=== PATIENT | female | born 1965 | race Caucasian/White ===

== ENCOUNTER 2016-09-18 19:28 | Emergency (ER) | payer OTHER ==
[~2016-09-18] VITALS: Ht 160 cm; Wt 89.0 kg
[~2016-09-18 19:28] MED LIST: LEVO100T87 PO; METF1000 PO; QUET300T13 PO
[2016-09-18 20:16] VITALS: Ht 160 cm; Wt 89.0 kg
[2016-09-18 21:58] LABS: ADD UMIC YES; URINE BILIRUBIN (Dip) NEGATIVE (NEGATIVE); URINE BLOOD (Dip) TRACE (NEGATIVE); URINE COLOR LT. YELLOW (YELLOW); URINE GLUCOSE (Dip) NEGATIVE (NEGATIVE); URINE KETONES (Dip) NEGATIVE (NEGATIVE); URINE LEUKOCYTE ESTERASE (Dip) 3+ (NEGATIVE); URINE NITRITE (Dip) NEGATIVE (NEGATIVE); URINE TOTAL PROTEIN (Dip) NEGATIVE (NEGATIVE); URINE UROBILINOGEN (Dip) 0.2 E.U./dL (0.1-1.0)
[2016-09-18 22:06] LABS: BASOPHIL # 0.1 10^3/ul (0.0-0.1); BASOPHILS % 0.5 % (0.0-2.0); EOSINOPHILS # 0.4 10^3/ul (0.0-0.5); EOSINOPHILS % 3.8 % (0.0-7.0); HEMATOCRIT 34.3 % (37.0-47.0); HEMOGLOBIN 11.4 g/dl (12.0-16.0); LYMPHOCYTES # 3.4 10^3/ul (0.8-2.9); LYMPHOCYTES % 32.9 % (15.0-51.0); MEAN CORPUSCULAR HEMOGLOBIN 28.5 pg (29.0-33.0); MEAN CORPUSCULAR HGB CONC 33.4 g/dl (32.0-37.0); MEAN CORPUSCULAR VOLUME 85.3 fl (82.0-101.0); MEAN PLATELET VOLUME 8.7 fl (7.4-10.4); MONOCYTE # 0.7 10^3/ul (0.3-0.9); MONOCYTES % 6.8 % (0.0-11.0); NEUTROPHIL # 5.8 10^3/ul (1.6-7.5); PLATELET COUNT 256 10^3/UL (140-440); RED BLOOD COUNT 4.03 10^6/ul (4.20-5.40); RED CELL DISTRIBUTION WIDTH 15.7 % (11.5-14.5); UNCORRECTED WBC 10.4 10^3/ul (4.8-10.8); WHITE BLOOD COUNT 10.4 10^3/ul (4.8-10.8)
[2016-09-18 22:08] LABS: BACTERIA,URINE MODERATE; SQUAMOUS EPITHELIAL CELL,UR MODERATE; TRICHOMONAS,URINE MODERATE; URINE RBCS 0-2 /HPF (0)
[2016-09-18 22:09] LABS: CONDITION 1; LH ANALYZER COMMENTS 1
[2016-09-18 22:13] LABS: ALBUMIN 4.3 g/dl (3.3-4.9)
[2016-09-18 22:14] LABS: CHLORIDE 100 mmol/L (97-110); POTASSIUM 3.6 mmol/L (3.5-5.1); SODIUM 142 mmol/L (135-144)
[2016-09-18 22:16] LABS: ALANINE AMINOTRANSFERASE 26 IU/L (13-69); ALBUMIN/GLOBULIN RATIO 1.53; ALKALINE PHOSPHATASE 49 IU/L (42-121); ANION GAP 24 (8-16); ASPARTATE AMINO TRANSFERASE 28 IU/L (15-46); BLOOD UREA NITROGEN 16 mg/dl (7-20); CARBON DIOXIDE 22 mmol/L (21-31); CREATININE 0.65 mg/dl (0.44-1.00); GLUCOSE 115 mg/dl (70-220); TOTAL PROTEIN 7.1 g/dl (6.1-8.1)
[2016-09-18 22:17] LABS: CALCIUM 9.5 mg/dl (8.4-10.2)
[2016-09-18 22:18] LABS: ACETAMINOPHEN < 10.0 ug/ml (10.0-30.0); SALICYLATE < 1.0 mg/dl (5.0-30.0)
[2016-09-18] MEDS ORDERED: TRIMETHOPRIM/SULFAMETHOX (DS) TAB PO ONE (22:30)
[2016-09-18 22:35] LABS: BARBITURATES NEGATIVE (NEGATIVE); BENZODIAZEPINES NEGATIVE (NEGATIVE); CANNABINOIDS NEGATIVE (NEGATIVE); COCAINE NEGATIVE (NEGATIVE); OPIATES NEGATIVE (NEGATIVE)
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
--- NOTE | 2016-09-18 22:50 | ERA ---
ER Documentation Chief Complaint Date/Time DATE: 09/18/16 TIME: 22:48 Chief Complaint suicidal ideation"hung herself" HPI This is a 51-year-old female presents to the emergency room for evaluation of suicidal ideation. The patient states that she is feeling depressed, and "I want to hang myself". The patient does state that she is was been surgical but has not had her medications because she lost them. She denies any homicidal ideation. ROS All systems reviewed and are negative except as per history of present illness. Medications Home Meds Reported Medications Quetiapine Fumarate* (Seroquel*) 300 Mg Tablet, 300 MG PO BID, #15 10/12/15 Metformin Hcl* (Metformin Hcl*) 1,000 Mg Tablet, 1000 MG PO BID, TAB 01/04/15 Levothyroxine Sodium* (Levothyroxine Sodium*) 100 Mcg Tablet, 100 MCG PO AC BREAKFAST, TAB 01/04/15 Allergies Allergies: Coded Allergies: No Known Drug Allergies (Verified Allergy, Unknown, 09/18/16) PMhx/Soc History of Surgery: No Anesthesia Reaction: No Hx Neurological Disorder: No Hx Respiratory Disorders: Yes Hx Cardiac Disorders: No Hx Psychiatric Problems: Yes (bipolar) Hx Miscellaneous Medical Probl: Yes (dm and hypothyroid) Hx Alcohol Use: Yes (per EMS) Hx Substance Use: No Hx Tobacco Use: Yes Smoking Status: Smoker,current status unk Physical Exam Vitals Vital Signs Date Time Temp Pulse Resp B/P Pulse Ox O2 Delivery O2 Flow Rate FiO2 09/18/16 20:16 97.7 95 290 125/60 100 Physical Exam INITIAL VITAL SIGNS: Reviewed by me GENERAL: The patient is well developed and appropriate for usual state of health in no apparent distress HEENT: Pupils equal, round, and reactive to light. EOMI. There is no scleral icterus. NECK: C-spine is soft and supple, there is no meningismus. There is no cervical lymphadenopathy. LUNGS: Clear to auscultation bilaterally. There are no rales, wheezes or rhonchi. HEART: Regular rate and rhythm, no murmurs, clicks, rubs or gallops. ABDOMEN: Soft, non-tender, non-distended. There are bowel sounds in all four quadrants. No rebound or guarding. EXTREMITIES: There is no peripheral cyanosis or edema. No focal swelling or erythema. NEUROLOGICAL: The patient moves all four extremities with 5/5 strength. Cranial nerves II - XII are intact. Normal gait. Alert and oriented SKIN: There is no apparent rash or petechiae. HEME/LYMPHATIC: There is no evidence of excessive bruising or lymphedema. PSYCHIATRIC: The patient does have a flat affect Result Diagram: 09/18/16214209/18/162142 Results 24 hrs Laboratory Tests Test 09/18/16 21:43 Acetaminophen Level < 10.0ug/ml Alanine Aminotransferase (ALT/SGPT) 26IU/L Albumin 4.3g/dl Albumin/Globulin Ratio 1.53 Alkaline Phosphatase 49IU/L Anion Gap 24 Aspartate Amino Transf (AST/SGOT) 28IU/L Basophils # 0.110^3/ul Basophils % 0.5% Blood Morphology Comment Blood Urea Nitrogen 16mg/dl Calcium Level 9.5mg/dl Carbon Dioxide Level 22mmol/L Chloride Level 100mmol/L Creatinine 0.65mg/dl Direct Bilirubin 0.00mg/dl Eosinophils # 0.410^3/ul Eosinophils % 3.8% Ethyl Alcohol Level 19.0mg/dl Globulin 2.80g/dl Glucose Level 115mg/dl Hematocrit 34.3% Hemoglobin 11.4g/dl Indirect Bilirubin 0.0mg/dl Lymphocytes # 3.410^3/ul Lymphocytes % 32.9% Mean Corpuscular Hemoglobin 28.5pg Mean Corpuscular Hemoglobin Concent 33.4g/dl Mean Corpuscular Volume 85.3fl Mean Platelet Volume 8.7fl Monocytes # 0.710^3/ul Monocytes % 6.8% Neutrophils # 5.810^3/ul Neutrophils % 56.0% Nucleated Red Blood Cells # 0.010^3/ul Nucleated Red Blood Cells % 0.0/100WBC Platelet Count 04222^3/UL Potassium Level 3.6mmol/L Red Blood Count 4.0310^6/ul Red Cell Distribution Width 15.7% Salicylates Level < 1.0mg/dl Sodium Level 142mmol/L Total Bilirubin 0.0mg/dl Total Protein 7.1g/dl Urine Amphetamines Screen NEGATIVE Urine Bacteria MODERATE Urine Barbiturates NEGATIVE Urine Benzodiazepines Screen NEGATIVE Urine Bilirubin NEGATIVE Urine Cannabinoids NEGATIVE Urine Clarity CLOUDY Urine Cocaine Screen NEGATIVE Urine Color LT. YELLOW Urine Glucose NEGATIVE% Urine Hemoglobin TRACE Urine Ketones NEGATIVE Urine Leukocyte Esterase 3+ Urine Microscopic RBC 0-2/HPF Urine Microscopic WBC >200/HPF Urine Nitrite NEGATIVE Urine Opiates Screen NEGATIVE Urine Specific [place] <=1.005 Urine Squamous Epithelial Cells MODERATE Urine Total Protein NEGATIVE Urine Trichomonas MODERATE Urine Urobilinogen 0.2 E.U./dL Urine pH 5.0 White Blood Count 10.410^3/ul Current Medications Medications (Trade) Dose Ordered Sig/Melissa Route PRN Reason Start Time Stop Time Status Last Admin Dose Admin Trimethoprim/ Sulfamethoxazole (Bactrim (Ds)) 1 tab ONCE ONCE PO 09/18/16 22:30 09/18/16 22:31 DC 09/18/16 22:26 Procedures/MDM This 51-year-old female presents to the ER for suicidal ideation. She does state that she wants to hang herself. The patient does have an extensive psychiatric history. Lab work was drawn including a urine which shows a urinary tract infection. The patient was given Bactrim. The patient was seen and evaluated by tele-psych and will be transferred when there is an available psychiatric bed. Patient presents with symptomatology consistent with the decompensation of previously diagnosed psychiatric disease. Based on history, physical exam and appropriate lab tests, I appreciate no evidence of significant life-threatening injury or illness that includes a psychiatric hospitalization. Patient is thus "medically clear" for psychiatric admission. In regards to the psychiatric complaints, this patient has clear evidence of high risk psychiatric symptoms with significant risk for decompensation, thus requiring admission to the hospital for stabilization. Departure Diagnosis: Primary Impression: Suicidal ideation Additional Impressions: Acute cystitis Normocytic anemia Condition: Fair BING POTTER DO Sep 18, 2016 22:50
[2016-09-18] MEDS ORDERED: QUETIAPINE 100 MG TAB PO ONE (23:00)
--- NOTE | 2016-09-19 09:38 | EN ---
Date/Time of Note Date/Time of Note DATE: 09/19/16 TIME: 09:34 ER Progress Note This patient had been seen and evaluated at 9 AM on September 19 by [facility] D[facility]. The patient did not meet criteria for a hold. The patient at this time was evaluated by myself as well as the leather goods sales representative from [employer] [facility]. The patient stated she was not suicidal homicidal. She stated she had been drinking roughly 6 beers a few hours prior to arrival and was trying to avoid her court date which was today. The bus transfer had been arranged for her to get back to her sober living facility and the patient was safely discharged at 9:36 AM by myself after I had reevaluated the patient and spoke with her in length. Again at this time the patient was not suicidal homicidal and had no auditory tactile or visual hallucinations. LESLIE JAVIER Sep 19, 2016 09:37
[2016-09-19 09:42] VITALS: BP 132/78; PULSE 72; RESP 18; TEMP 98.1
== END 2016-09-19 09:47 | disposition home or self-care (01) ==
LOC: E/R 19:28
DX: N30.00 Acute cystitis without hematuria (principal); D64.9 Anemia, unspecified; R45.851 Suicidal ideations; E11.9 Type 2 diabetes mellitus without complications; E03.9 Hypothyroidism, unspecified; F17.210 Nicotine dependence, cigarettes, uncomplicated; Z79.84 Long term (current) use of oral hypoglycemic drugs
CPT/HCPCS: 36415; 80053; 80306; 80307; 81001; 81003; 85025; 99283

== ENCOUNTER 2016-10-07 17:57 | Emergency (ER) | payer SELFPAY ==
[~2016-10-07] VITALS: Ht 160 cm; Wt 89.0 kg
[2016-10-07 18:39] VITALS: Ht 160 cm; Wt 89.0 kg
== END 2016-10-07 21:20 | disposition left against medical advice (07) ==
LOC: E/R 17:57
DX: Z53.21 Procedure and treatment not carried out due to patient leaving prior to being seen by health care provider (principal)

== ENCOUNTER 2016-12-12 20:53 | Emergency (ER) | payer OTHER, MEDICAID ==
[~2016-12-12] VITALS: Ht 160 cm; Wt 88.0 kg
[2016-12-12 20:59] VITALS: Ht 160 cm; Wt 88.0 kg
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
[2016-12-13 01:06] LABS: ADD SCAN DIFF NO
[2016-12-13 01:09] LABS: BASOPHILS % 0.4 % (0.0-2.0); EOSINOPHILS # 0.2 10^3/ul (0.0-0.5); EOSINOPHILS % 2.8 % (0.0-7.0); HEMATOCRIT 31.9 % (37.0-47.0); LYMPHOCYTES # 3.7 10^3/ul (0.8-2.9); MEAN CORPUSCULAR HEMOGLOBIN 26.7 pg (29.0-33.0); MEAN CORPUSCULAR HGB CONC 31.3 g/dl (32.0-37.0); MEAN CORPUSCULAR VOLUME 85.3 fl (82.0-101.0); MEAN PLATELET VOLUME 9.8 fl (7.4-10.4); MONOCYTE # 0.6 10^3/ul (0.3-0.9); MONOCYTES % 8.9 % (0.0-11.0); NEUTROPHIL # 2.4 10^3/ul (1.6-7.5); NEUTROPHILS % 34.5 % (39.0-77.0); PLATELET COUNT 301 10^3/UL (140-415); RED BLOOD COUNT 3.74 10^6/ul (4.20-5.40); RED CELL DISTRIBUTION WIDTH 16.6 % (11.5-14.5); WHITE BLOOD COUNT 7.1 10^3/ul (4.8-10.8)
[2016-12-13 01:11] LABS: ADD UMIC NO; URINE BILIRUBIN (Dip) NEGATIVE (NEGATIVE); URINE BLOOD (Dip) NEGATIVE (NEGATIVE); URINE COLOR LT. YELLOW (YELLOW); URINE GLUCOSE (Dip) NEGATIVE (NEGATIVE); URINE KETONES (Dip) NEGATIVE (NEGATIVE); URINE LEUKOCYTE ESTERASE (Dip) NEGATIVE (NEGATIVE); URINE NITRITE (Dip) NEGATIVE (NEGATIVE); URINE TOTAL PROTEIN (Dip) NEGATIVE (NEGATIVE); URINE UROBILINOGEN (Dip) 0.2 E.U./dL (0.1-1.0)
[2016-12-13 01:29] LABS: ALBUMIN 3.8 g/dl (3.3-4.9); CHLORIDE 98 mmol/L (97-110)
[2016-12-13 01:30] LABS: POTASSIUM 3.6 mmol/L (3.5-5.1); SODIUM 135 mmol/L (135-144)
[2016-12-13 01:32] LABS: ALANINE AMINOTRANSFERASE 32 IU/L (13-69); ALKALINE PHOSPHATASE 47 IU/L (42-121); ANION GAP 17 (8-16); ASPARTATE AMINO TRANSFERASE 33 IU/L (15-46); BILIRUBIN,INDIRECT 0.2 mg/dl (0-1.1); BILIRUBIN,TOTAL 0.2 mg/dl (0.2-1.3); BLOOD UREA NITROGEN 18 mg/dl (7-20); CARBON DIOXIDE 24 mmol/L (21-31); CREATININE 0.67 mg/dl (0.44-1.00); GLUCOSE 108 mg/dl (70-220); TOTAL PROTEIN 6.5 g/dl (6.1-8.1)
[2016-12-13 01:33] LABS: CALCIUM 8.7 mg/dl (8.4-10.2)
[2016-12-13 01:34] LABS: ACETAMINOPHEN < 10.0 ug/ml (10.0-30.0); SALICYLATE < 1.0 mg/dl (5.0-30.0)
[2016-12-13 01:38] LABS: BARBITURATES Negative (NEGATIVE)
[2016-12-13 01:41] LABS: BENZODIAZEPINES Negative (NEGATIVE); CANNABINOIDS Negative (NEGATIVE); COCAINE Negative (NEGATIVE); OPIATES Negative (NEGATIVE)
--- NOTE | 2016-12-13 02:55 | ERA ---
ER Documentation Chief Complaint Date/Time DATE: 12/13/16 TIME: 02:51 Chief Complaint states suicidal ideations HPI This 51-year-old female comes emergency room stating that she is suicidal and would like a place to stay. She does not have a specific plan in mind. He said that she has not any medications and denies drinking alcohol. Says that she has no physical pain. She did have a thumb injury 2 days ago for which she has splinted now. She currently has no pain of the thumb. ROS All systems reviewed and are negative except as per history of present illness. Medications Home Meds Reported Medications Quetiapine Fumarate* (Seroquel*) 300 Mg Tablet, 300 MG PO BID, #15 10/12/15 Metformin Hcl* (Metformin Hcl*) 1,000 Mg Tablet, 1000 MG PO BID, TAB 01/04/15 Levothyroxine Sodium* (Levothyroxine Sodium*) 100 Mcg Tablet, 100 MCG PO AC BREAKFAST, TAB 01/04/15 Allergies Allergies: Coded Allergies: No Known Drug Allergies (Verified Allergy, Unknown, 12/12/16) PMhx/Soc History of Surgery: No Anesthesia Reaction: No Hx Neurological Disorder: No Hx Respiratory Disorders: Yes Hx Cardiac Disorders: No Hx Psychiatric Problems: Yes (bipolar,anxiety,hx psych facility for SI) Hx Miscellaneous Medical Probl: Yes (diabetes, hypothyroid) Hx Alcohol Use: Yes (occasionally) Hx Substance Use: No Hx Tobacco Use: No (denies) Smoking Status: Never smoker Physical Exam Vitals Vital Signs Date Time Temp Pulse Resp B/P Pulse Ox O2 Delivery O2 Flow Rate FiO2 12/13/16 00:00 85 18 112/59 93 Room Air 12/12/16 20:59 99.3 88 20 124/60 96 Physical Exam Const: [] No distress Head: Atraumatic Eyes: Conjunctival erythema ENT: Normal External Ears, Nose and Mouth. Neck: Full range of motion..~ No meningismus. Resp: Clear to auscultation bilaterally Cardio: Regular rate and rhythm, no murmurs Abd: Soft, non tender, non distended. Normal bowel sounds Skin: No petechiae or rashes Ext: No cyanosis, or edema, valuable metal splint on thumb. Underneath thumb appears within normal limits with capillary refill less than 1 second. Neur: Awake and alert and oriented 3, cranial nerves II through XII intact, patient is euphoric and appears intoxicated does not have any slurred speech, no cerebellar deficits, Psych: Somewhat euphoric. Result Diagram: 12/13/16 00512/13/16 0050 Results 24 hrs Laboratory Tests Test 12/12/16 23:45 12/13/16 00:50 Urine Color LT. YELLOW Urine Clarity CLEAR Urine pH 5.0 Urine Specific [place] <=1.005 Urine Ketones NEGATIVE Urine Nitrite NEGATIVE Urine Bilirubin NEGATIVE Urine Urobilinogen 0.2 E.U./dL Urine Leukocyte Esterase NEGATIVE Urine Hemoglobin NEGATIVE Urine Glucose NEGATIVE% Urine Total Protein NEGATIVE Urine Opiates Screen Negative Urine Barbiturates Negative Urine Amphetamines Screen Negative Urine Benzodiazepines Screen Negative Urine Cocaine Screen Negative Urine Cannabinoids Negative White Blood Count 7.110^3/ul Red Blood Count 3.7410^6/ul Hemoglobin 10.0g/dl Hematocrit 31.9% Mean Corpuscular Volume 85.3fl Mean Corpuscular Hemoglobin 26.7pg Mean Corpuscular Hemoglobin Concent 31.3g/dl Red Cell Distribution Width 16.6% Platelet Count 74208^3/UL Mean Platelet Volume 9.8fl Neutrophils % 34.5% Lymphocytes % 53.0% Monocytes % 8.9% Eosinophils % 2.8% Basophils % 0.4% Nucleated Red Blood Cells % 0.0/100WBC Neutrophils # 2.410^3/ul Lymphocytes # 3.710^3/ul Monocytes # 0.610^3/ul Eosinophils # 0.210^3/ul Basophils # 0.010^3/ul Nucleated Red Blood Cells # 0.010^3/ul Sodium Level 135mmol/L Potassium Level 3.6mmol/L Chloride Level 98mmol/L Carbon Dioxide Level 24mmol/L Anion Gap 17 Blood Urea Nitrogen 18mg/dl Creatinine 0.67mg/dl Glucose Level 108mg/dl Calcium Level 8.7mg/dl Total Bilirubin 0.2mg/dl Direct Bilirubin 0.00mg/dl Indirect Bilirubin 0.2mg/dl Aspartate Amino Transf (AST/SGOT) 33IU/L Alanine Aminotransferase (ALT/SGPT) 32IU/L Alkaline Phosphatase 47IU/L Total Protein 6.5g/dl Albumin 3.8g/dl Globulin 2.70g/dl Albumin/Globulin Ratio 1.40 Salicylates Level < 1.0mg/dl Acetaminophen Level < 10.0ug/ml Ethyl Alcohol Level 104.0mg/dl Procedures/MDM Patient has been here several times for transfer to psychiatric facility for suicidal ideations. She does admit that she would like a place to stay. She is pleasant and cooperative. She is medically cleared and that I do not see any medical condition will preclude her from psychiatric admission. Spoke with the [facility] psych doctor who does recommend voluntary admission to a psychiatric facility. Departure Diagnosis: Primary Impression: Suicidal ideation Additional Impression: Anemia Condition: Stable MUNIRA PIZANO DO Dec 13, 2016 02:55
[2016-12-13 07:39] VITALS: BP 104/56; PULSE 77; RESP 18; TEMP 98.2
== END 2016-12-13 07:40 ==
LOC: E/R 20:53
DX: D64.9 Anemia, unspecified (principal); R45.851 Suicidal ideations; E11.9 Type 2 diabetes mellitus without complications; E03.9 Hypothyroidism, unspecified; Z79.84 Long term (current) use of oral hypoglycemic drugs
CPT/HCPCS: 36415; 80053; 80306; 80307; 81003; 85025; 99285

== ENCOUNTER 2017-03-03 21:21 | Emergency (ER) | END 2017-03-04 20:12 | DX: R45.851 Suicidal ideations (principal); E11.9 Type 2 diabetes mellitus without complications; E03.9 Hypothyroidism, unspecified; Z79.84 Long term (current) use of oral hypoglycemic drugs; Z87.891 Personal history of nicotine dependence ==

== ENCOUNTER 2017-04-14 03:26 | Emergency (ER) | payer MEDICAID, OTHER ==
[~2017-04-14] VITALS: Ht 161.3 cm; Wt 95.5 kg
[~2017-04-14 03:26] MED LIST changes: +ALBU18HF INHALATION; +ALBU8.5H5 INH; +CARI350T PO; +CEPH500C PO; +CLON1POW5 PO; +CLON1TAB3 PO; +DICL50TA11 PO; +GUAI120S26 PO; +HYDR-3498 PO; +IBUP-1542 PO; +IBUP800T25 PO; +LORA-186 PO; +METF500T4 PO; +OMEP20CA9 PO; +PARO-37 PO; +PRED20TA PO; +ZIPR80CA22 PO
[2017-04-14 03:33] VITALS: Ht 161.3 cm; Wt 95.5 kg
== END 2017-04-14 04:05 | disposition left against medical advice (07) ==
LOC: FTE 03:26
DX: Z53.21 Procedure and treatment not carried out due to patient leaving prior to being seen by health care provider (principal)

== ENCOUNTER 2017-04-21 23:25 | Emergency (ER) | payer OTHER ==
[~2017-04-21] VITALS: Ht 160 cm; Wt 99.0 kg
[~2017-04-21 23:25] MED LIST changes: -ALBU18HF INHALATION; -ALBU8.5H5 INH; -CARI350T PO; -CEPH500C PO; -CLON1POW5 PO; -CLON1TAB3 PO; -DICL50TA11 PO; -GUAI120S26 PO; -HYDR-3498 PO; -IBUP-1542 PO; -IBUP800T25 PO; -LORA-186 PO; -METF500T4 PO; -OMEP20CA9 PO; -PARO-37 PO; -PRED20TA PO; -ZIPR80CA22 PO
[2017-04-22 00:04] VITALS: Ht 160 cm; Wt 99.0 kg
[2017-04-22 02:05] LABS: BASOPHILS % 0.5 % (0.0-2.0); EOSINOPHILS # 0.3 10^3/ul (0.0-0.5); HEMATOCRIT 32.1 % (37.0-47.0); HEMOGLOBIN 10.2 g/dl (12.0-16.0); LYMPHOCYTES # 3.6 10^3/ul (0.8-2.9); MEAN CORPUSCULAR HEMOGLOBIN 25.2 pg (29.0-33.0); MEAN CORPUSCULAR HGB CONC 31.8 g/dl (32.0-37.0); MEAN CORPUSCULAR VOLUME 79.5 fl (82.0-101.0); MEAN PLATELET VOLUME 10.3 fl (7.4-10.4); MONOCYTE # 0.8 10^3/ul (0.3-0.9); MONOCYTES % 9.8 % (0.0-11.0); NEUTROPHILS % 40.3 % (39.0-77.0); PLATELET COUNT 332 10^3/UL (140-415); RED BLOOD COUNT 4.04 10^6/ul (4.20-5.40); RED CELL DISTRIBUTION WIDTH 15.8 % (11.5-14.5); WHITE BLOOD COUNT 8.1 10^3/ul (4.8-10.8)
[2017-04-22 02:28] LABS: ADD UMIC NO; UR ASCORBIC ACID NEGATIVE (NEGATIVE); UR BILIRUBIN (Dip) NEGATIVE (NEGATIVE); UR BLOOD (Dip) NEGATIVE (NEGATIVE); UR CLARITY CLEAR (CLEAR); UR COLOR STRAW (YELLOW); UR GLUCOSE (Dip) NEGATIVE (NEGATIVE); UR KETONES (Dip) NEGATIVE (NEGATIVE); UR LEUKOCYTE ESTERASE (Dip) NEGATIVE Leu/ul (NEGATIVE); UR NITRITE (Dip) NEGATIVE (NEGATIVE); UR SPECIFIC GRAVITY (Dip) 1.004 (1.003-1.030); UR TOTAL PROTEIN (Dip) NEGATIVE (NEGATIVE); UR UROBILINOGEN (Dip) NEGATIVE (NEGATIVE)
[2017-04-22 02:29] LABS: ALANINE AMINOTRANSFERASE 35 IU/L (13-69); ALBUMIN 3.7 g/dl (3.3-4.9); ALBUMIN/GLOBULIN RATIO 1.27; ALKALINE PHOSPHATASE 48 IU/L (42-121); ANION GAP 19 (8-16); ASPARTATE AMINO TRANSFERASE 28 IU/L (15-46); BILIRUBIN,INDIRECT 0.1 mg/dl (0-1.1); BILIRUBIN,TOTAL 0.1 mg/dl (0.2-1.3); BLOOD UREA NITROGEN 16 mg/dl (7-20); CALCIUM 8.8 mg/dl (8.4-10.2); CARBON DIOXIDE 26 mmol/L (21-31); CHLORIDE 95 mmol/L (97-110); CREATININE 0.59 mg/dl (0.44-1.00); GLUCOSE 201 mg/dl (70-220); POTASSIUM 3.5 mmol/L (3.5-5.1); SODIUM 136 mmol/L (135-144); TOTAL PROTEIN 6.6 g/dl (6.1-8.1)
[2017-04-22 02:44] LABS: ACETAMINOPHEN < 10.0 ug/ml (10.0-30.0); SALICYLATE < 1.0 mg/dl (5.0-30.0)
[2017-04-22 02:44] LABS: BARBITURATES Negative (NEGATIVE); BENZODIAZEPINES Negative (NEGATIVE); CANNABINOIDS Negative (NEGATIVE); COCAINE Negative (NEGATIVE); OPIATES Negative (NEGATIVE)
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
--- NOTE | 2017-04-22 04:50 | ERA ---
ER Documentation Chief Complaint Date/Time DATE: 04/22/17 TIME: 04:47 Chief Complaint "I've been thinking about hanging my self for 2 weeks due to depression" HPI 51-year-old female suicidal ideation and wants to hang herself best to be secondary depression. History of pre-multiple previous psychiatric admissions. No auditory or visual hallucinations. ROS All systems reviewed and are negative except as per history of present illness. Medications Home Meds Reported Medications Quetiapine Fumarate* (Seroquel*) 300 Mg Tablet, 300 MG PO BID, #15 10/12/15 Metformin Hcl* (Metformin Hcl*) 1,000 Mg Tablet, 1000 MG PO BID, TAB 01/04/15 Levothyroxine Sodium* (Levothyroxine Sodium*) 100 Mcg Tablet, 100 MCG PO AC BREAKFAST, TAB 01/04/15 Allergies Allergies: Coded Allergies: No Known Drug Allergies (Unverified Allergy, Unknown, 04/22/17) PMhx/Soc History of Surgery: Yes (hx of per pt) Anesthesia Reaction: No Hx Neurological Disorder: No Hx Respiratory Disorders: Yes Hx Cardiac Disorders: No Hx Psychiatric Problems: Yes (bipolar,anxiety,hx psych facility for SI) Hx Miscellaneous Medical Probl: Yes (diabetes, hypothyroid) Hx Alcohol Use: Yes (occasionally) Hx Substance Use: No Hx Tobacco Use: Yes Smoking Status: Current every day smoker Physical Exam Vitals Vital Signs Date Time Temp Pulse Resp B/P Pulse Ox O2 Delivery O2 Flow Rate FiO2 04/22/17 00:04 98.4 65 18 104/57 93 Physical Exam Const: [] Head: Atraumatic Eyes: Normal Conjunctiva ENT: Normal External Ears, Nose and Mouth. Neck: Full range of motion..~ No meningismus. Resp: Clear to auscultation bilaterally Cardio: Regular rate and rhythm, no murmurs Abd: Soft, non tender, non distended. Normal bowel sounds Skin: No petechiae or rashes Back: No midline or flank tenderness Ext: No cyanosis, or edema Neur: Awake and alert Psych: Normal Mood and Affect Result Diagram: 04/22/17 0138 04/22/178 Results 24 hrs Laboratory Tests Test 04/22/17 01:21 04/22/17 01:38 Urine Color STRAW Urine Clarity CLEAR Urine pH 5.0 Urine Specific [place] 1.004 Urine Ketones NEGATIVEmg/dL Urine Nitrite NEGATIVEmg/dL Urine Bilirubin NEGATIVEmg/dL Urine Urobilinogen NEGATIVEmg/dL Urine Leukocyte Esterase NEGATIVELeu/ul Urine Hemoglobin NEGATIVEmg/dL Urine Glucose NEGATIVEmg/dL Urine Total Protein NEGATIVEmg/dl Urine Opiates Screen Negative Urine Barbiturates Negative Urine Amphetamines Screen Negative Urine Benzodiazepines Screen Negative Urine Cocaine Screen Negative Urine Cannabinoids Negative White Blood Count 8.110^3/ul Red Blood Count 4.0410^6/ul Hemoglobin 10.2g/dl Hematocrit 32.1% Mean Corpuscular Volume 79.5fl Mean Corpuscular Hemoglobin 25.2pg Mean Corpuscular Hemoglobin Concent 31.8g/dl Red Cell Distribution Width 15.8% Platelet Count 01107^3/UL Mean Platelet Volume 10.3fl Neutrophils % 40.3% Lymphocytes % 45.0% Monocytes % 9.8% Eosinophils % 4.0% Basophils % 0.5% Nucleated Red Blood Cells % 0.0/100WBC Neutrophils # (Manual) 3.310^3/ul Lymphocytes # 3.610^3/ul Monocytes # 0.810^3/ul Eosinophils # 0.310^3/ul Basophils # 0.010^3/ul Nucleated Red Blood Cells # 0.010^3/ul Sodium Level 136mmol/L Potassium Level 3.5mmol/L Chloride Level 95mmol/L Carbon Dioxide Level 26mmol/L Anion Gap 19 Blood Urea Nitrogen 16mg/dl Creatinine 0.59mg/dl Glucose Level 201mg/dl Calcium Level 8.8mg/dl Total Bilirubin 0.1mg/dl Direct Bilirubin 0.00mg/dl Indirect Bilirubin 0.1mg/dl Aspartate Amino Transf (AST/SGOT) 28IU/L Alanine Aminotransferase (ALT/SGPT) 35IU/L Alkaline Phosphatase 48IU/L Total Protein 6.6g/dl Albumin 3.7g/dl Globulin 2.90g/dl Albumin/Globulin Ratio 1.27 Salicylates Level < 1.0mg/dl Acetaminophen Level < 10.0ug/ml Ethyl Alcohol Level 133.0mg/dl Procedures/MDM Patient's behavioral symptoms have stabilized while in the department. Patient is medically cleared and appropriate for psychiatric evaluation and work up. No e/o neurologic, toxic, infectious, or metabolic cause. Departure Diagnosis: Primary Impression: Suicidal ideation Condition: Stable ISAIAS REYES Apr 22, 2017 04:50
[2017-04-22 06:00] VITALS: TEMP 98
--- NOTE | 2017-04-22 08:49 | QN ---
Documentation Comment The patient has been accepted to [facility]. The patient was placed on the 5150 hold. Pending transfer at this time. KANU NARVAEZ MD Apr 22, 2017 08:49
[2017-04-22 09:34] VITALS: BP 133/88; PULSE 60; RESP 18
== END 2017-04-22 09:35 | disposition home or self-care (01) ==
LOC: E/R 23:25
DX: R45.851 Suicidal ideations (principal); E11.9 Type 2 diabetes mellitus without complications; F17.210 Nicotine dependence, cigarettes, uncomplicated; E03.9 Hypothyroidism, unspecified; Z79.84 Long term (current) use of oral hypoglycemic drugs
CPT/HCPCS: 80053; 80306; 80307; 81003; 85025; 99283

== ENCOUNTER 2017-04-25 05:06 | Emergency (ER) | payer OTHER ==
[~2017-04-25] VITALS: Ht 160 cm; Wt 97.0 kg
[2017-04-25 05:17] VITALS: Ht 160 cm; Wt 97.0 kg
== END 2017-04-25 06:25 | disposition left against medical advice (07) ==
LOC: E/R 05:06
DX: Z53.21 Procedure and treatment not carried out due to patient leaving prior to being seen by health care provider (principal)

== ENCOUNTER 2017-06-11 19:03 | Emergency (ER) | payer OTHER ==
[~2017-06-11] VITALS: Ht 160 cm; Wt 86.4 kg
[2017-06-11 19:06] VITALS: Ht 160 cm; Wt 86.4 kg
[2017-06-11 20:09] LABS: BASOPHILS % 0.4 % (0.0-2.0); EOSINOPHILS # 0.2 10^3/ul (0.0-0.5); HEMOGLOBIN 11.9 g/dl (12.0-16.0); LYMPHOCYTES # 2.7 10^3/ul (0.8-2.9); LYMPHOCYTES % 35.6 % (15.0-51.0); MEAN CORPUSCULAR HEMOGLOBIN 25.5 pg (29.0-33.0); MEAN CORPUSCULAR HGB CONC 32.2 g/dl (32.0-37.0); MEAN CORPUSCULAR VOLUME 79.4 fl (82.0-101.0); MEAN PLATELET VOLUME 10.8 fl (7.4-10.4); MONOCYTE # 0.5 10^3/ul (0.3-0.9); MONOCYTES % 6.9 % (0.0-11.0); NEUTROPHIL # 4.1 10^3/ul (1.6-7.5); NEUTROPHILS % 54.8 % (39.0-77.0); PLATELET COUNT 262 10^3/UL (140-415); RED BLOOD COUNT 4.66 10^6/ul (4.20-5.40); RED CELL DISTRIBUTION WIDTH 16.2 % (11.5-14.5); WHITE BLOOD COUNT 7.5 10^3/ul (4.8-10.8)
[2017-06-11 20:24] LABS: ACETAMINOPHEN < 10.0 ug/ml (10.0-30.0); ALANINE AMINOTRANSFERASE 41 IU/L (13-69); ALBUMIN 4.2 g/dl (3.3-4.9); ALBUMIN/GLOBULIN RATIO 1.44; ALKALINE PHOSPHATASE 53 IU/L (42-121); ANION GAP 18 (8-16); ASPARTATE AMINO TRANSFERASE 32 IU/L (15-46); BILIRUBIN,INDIRECT 0.2 mg/dl (0-1.1); BILIRUBIN,TOTAL 0.2 mg/dl (0.2-1.3); BLOOD UREA NITROGEN 20 mg/dl (7-20); CALCIUM 9.3 mg/dl (8.4-10.2); CARBON DIOXIDE 23 mmol/L (21-31); CHLORIDE 95 mmol/L (97-110); CREATININE 0.58 mg/dl (0.44-1.00); GLUCOSE 122 mg/dl (70-220); POTASSIUM 3.7 mmol/L (3.5-5.1); SODIUM 132 mmol/L (135-144); TOTAL PROTEIN 7.1 g/dl (6.1-8.1)
[2017-06-11 20:25] LABS: SALICYLATE < 1.0 mg/dl (5.0-30.0)
[2017-06-11 20:35] LABS: ADD UMIC YES; UR ASCORBIC ACID NEGATIVE (NEGATIVE); UR BACTERIA FEW /HPF (NONE SEEN); UR BILIRUBIN (Dip) NEGATIVE (NEGATIVE); UR BLOOD (Dip) NEGATIVE (NEGATIVE); UR CLARITY CLEAR (CLEAR); UR COLOR YELLOW (YELLOW); UR GLUCOSE (Dip) NEGATIVE (NEGATIVE); UR KETONES (Dip) NEGATIVE (NEGATIVE); UR LEUKOCYTE ESTERASE (Dip) 2+ Leu/ul (NEGATIVE); UR NITRITE (Dip) NEGATIVE (NEGATIVE); UR RBC 7 /HPF (0-5); UR SPECIFIC GRAVITY (Dip) 1.011 (1.003-1.030); UR SQUAMOUS EPITHELIAL CELL FEW /HPF (FEW); UR TOTAL PROTEIN (Dip) NEGATIVE (NEGATIVE); UR UROBILINOGEN (Dip) NEGATIVE (NEGATIVE)
[2017-06-11 20:45] LABS: BARBITURATES Negative (NEGATIVE); BENZODIAZEPINES Negative (NEGATIVE); CANNABINOIDS Negative (NEGATIVE); COCAINE Negative (NEGATIVE); OPIATES Negative (NEGATIVE)
[2017-06-11] MEDS ORDERED: LEVOFLOXACIN 750 MG TABLET PO ONE (21:00)
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
--- NOTE | 2017-06-12 00:32 | ERD ---
ER Documentation Chief Complaint Chief Complaint SUICIDAL IDEATIONS "WANTS TO HANG HERSELF" HPI The because she wants to hang herself. She denies any physical symptoms currently. Says she has been in multiple psychiatric facilities and knows that she gets to be admitted and stay in the hospital she says she is suicidal. Says that she is generally depressed about life. Has not taken any substances or try to hurt herself yet. ROS All systems reviewed and are negative except as per history of present illness. Medications Home Meds Reported Medications Quetiapine Fumarate* (Seroquel*) 300 Mg Tablet, 300 MG PO BID, #15 10/12/15 Metformin Hcl* (Metformin Hcl*) 1,000 Mg Tablet, 1000 MG PO BID, TAB 01/04/15 Levothyroxine Sodium* (Levothyroxine Sodium*) 100 Mcg Tablet, 100 MCG PO AC BREAKFAST, TAB 01/04/15 Allergies Allergies: Coded Allergies: No Known Drug Allergies (Unverified Allergy, Unknown, 04/22/17) PMhx/Soc History of Surgery: Yes (hx of per pt) Anesthesia Reaction: No Hx Neurological Disorder: No Hx Respiratory Disorders: No Hx Cardiac Disorders: No Hx Psychiatric Problems: Yes (bipolar,anxiety,hx psych facility for SI) Hx Miscellaneous Medical Probl: Yes (diabetes, hypothyroid) Hx Alcohol Use: Yes (sober alcoholic, 6 months sober) Hx Substance Use: No Hx Tobacco Use: Yes Smoking Status: Light tobacco smoker Physical Exam Vitals Vital Signs Date Time Temp Pulse Resp B/P Pulse Ox O2 Delivery O2 Flow Rate FiO2 06/11/17 19:21 98.4 84 16 116/68 93 Room Air 06/11/17 19:06 98.3 89 18 116/68 94 Physical Exam Const: [] No distress Head: Atraumatic Eyes: Normal Conjunctiva ENT: Normal External Ears, Nose and Mouth. Neck: Full range of motion..~ No meningismus. Resp: Clear to auscultation bilaterally Cardio: Regular rate and rhythm, no murmurs Abd: Soft, non tender, non distended. Normal bowel sounds Skin: No petechiae or rashes Ext: No cyanosis, or edema Neur: Awake and alert oriented 3, no focal deficits Psych: Normal Mood and Affect Result Diagram: 10/19/17 1950 10/19/17 1950 Results 24 hrs Laboratory Tests Test 06/11/17 19:30 06/11/17 19:43 06/11/17 19:50 Urine Color YELLOW Urine Clarity CLEAR Urine pH 5.0 Urine Specific [place] 1.011 Urine Ketones NEGATIVEmg/dL Urine Nitrite NEGATIVEmg/dL Urine Bilirubin NEGATIVEmg/dL Urine Urobilinogen NEGATIVEmg/dL Urine Leukocyte Esterase 2+Jazmín/ul Urine Microscopic RBC 7/HPF Urine Microscopic WBC 4/HPF Urine Squamous Epithelial Cells FEW/HPF Urine Bacteria FEW/HPF Urine Hemoglobin NEGATIVEmg/dL Urine Glucose NEGATIVEmg/dL Urine Total Protein NEGATIVEmg/dl Urine Opiates Screen Negative Urine Barbiturates Negative Urine Amphetamines Screen Negative Urine Benzodiazepines Screen Negative Urine Cocaine Screen Negative Urine Cannabinoids Negative Bedside Glucose 128mg/dL White Blood Count 7.510^3/ul Red Blood Count 4.6610^6/ul Hemoglobin 11.9g/dl Hematocrit 37.0% Mean Corpuscular Volume 79.4fl Mean Corpuscular Hemoglobin 25.5pg Mean Corpuscular Hemoglobin Concent 32.2g/dl Red Cell Distribution Width 16.2% Platelet Count 88984^3/UL Mean Platelet Volume 10.8fl Neutrophils % 54.8% Lymphocytes % 35.6% Monocytes % 6.9% Eosinophils % 2.0% Basophils % 0.4% Nucleated Red Blood Cells % 0.0/100WBC Neutrophils # 4.110^3/ul Lymphocytes # 2.710^3/ul Monocytes # 0.510^3/ul Eosinophils # 0.210^3/ul Basophils # 0.010^3/ul Nucleated Red Blood Cells # 0.010^3/ul Sodium Level 132mmol/L Potassium Level 3.7mmol/L Chloride Level 95mmol/L Carbon Dioxide Level 23mmol/L Anion Gap 18 Blood Urea Nitrogen 20mg/dl Creatinine 0.58mg/dl Glucose Level 122mg/dl Calcium Level 9.3mg/dl Total Bilirubin 0.2mg/dl Direct Bilirubin 0.00mg/dl Indirect Bilirubin 0.2mg/dl Aspartate Amino Transf (AST/SGOT) 32IU/L Alanine Aminotransferase (ALT/SGPT) 41IU/L Alkaline Phosphatase 53IU/L Total Protein 7.1g/dl Albumin 4.2g/dl Globulin 2.90g/dl Albumin/Globulin Ratio 1.44 Salicylates Level < 1.0mg/dl Acetaminophen Level < 10.0ug/ml Ethyl Alcohol Level 123.0mg/dl Current Medications Medications (Trade) Dose Ordered Sig/Melissa Route PRN Reason Start Time Stop Time Status Last Admin Dose Admin Levofloxacin (Levaquin) 750 mg ONCE ONCE PO 06/11/17 21:00 06/11/17 21:01 DC 06/11/17 20:55 Procedures/MDM -year-old female who is placed a. She may be abusing the system but she also says that she wants to hang herself. In the interest of safety she will be given the benefit of the doubt and if she says the same thing to tele- psychiatry will likely be put on a 5150 for psychiatric evaluation. Urinalysis is mildly positive for UTI and patient was given a Levaquin tab otherwise she has no medical conditions would preclude her from psychiatric admission. Mild anemia. Departure Diagnosis: Primary Impression: Suicidal ideation Additional Impressions: UTI (urinary tract infection) Mild anemia MUNIRA PIZANO DO Jun 12, 2017 00:32
[2017-06-12 02:20] VITALS: BP 112/73; PULSE 103; RESP 19; TEMP 97.8
== END 2017-06-12 02:30 ==
LOC: E/R 19:03
DX: R45.851 Suicidal ideations (principal); N39.0 Urinary tract infection, site not specified; D64.9 Anemia, unspecified; E11.9 Type 2 diabetes mellitus without complications; E03.9 Hypothyroidism, unspecified; F17.210 Nicotine dependence, cigarettes, uncomplicated; Z79.84 Long term (current) use of oral hypoglycemic drugs
CPT/HCPCS: 36415; 80053; 80306; 80307; 81001; 82962; 85025; 99283

== ENCOUNTER 2017-08-18 21:25 | Emergency (ER) | payer OTHER, MEDICAID ==
[~2017-08-18] VITALS: Ht 165.1 cm; Wt 94.3 kg
[2017-08-18 22:11] VITALS: Ht 165.1 cm; Wt 94.3 kg
[2017-08-18 22:54] LABS: BASOPHIL # 0.1 10^3/ul (0.0-0.1); BASOPHILS % 0.7 % (0.0-2.0); MEAN CORPUSCULAR VOLUME 80.6 fl (82.0-101.0); MEAN PLATELET VOLUME 10.3 fl (7.4-10.4); WHITE BLOOD COUNT 8.8 10^3/ul (4.8-10.8)
--- NOTE | 2017-08-18 23:09 | ERD ---
ER Documentation Chief Complaint Chief Complaint Feeling suicidal "I want to hang myself" Previous attempts. Denies HI HPI This 52-year-old female presents emergency room stating that she wants to be admitted because she wants to hang herself. Not want to hurt anyone else. States that she has tried to hang herself before unsuccessfully. She has not tried to hang herself yet today and has no physical pain or physical complaints. Is taking any pills. ROS All systems reviewed and are negative except as per history of present illness. Medications Home Meds Reported Medications Quetiapine Fumarate* (Seroquel*) 300 Mg Tablet, 300 MG PO BID, #15 10/12/15 Metformin Hcl* (Metformin Hcl*) 1,000 Mg Tablet, 1000 MG PO BID, TAB 01/04/15 Levothyroxine Sodium* (Levothyroxine Sodium*) 100 Mcg Tablet, 100 MCG PO AC BREAKFAST, TAB 01/04/15 Allergies Allergies: Coded Allergies: No Known Drug Allergies (Unverified Allergy, Unknown, 08/19/17) PMhx/Soc History of Surgery: Yes (hx of per pt) Anesthesia Reaction: No Hx Neurological Disorder: No Hx Respiratory Disorders: No Hx Cardiac Disorders: No Hx Psychiatric Problems: Yes (bipolar,anxiety,hx psych facility for SI) Hx Miscellaneous Medical Probl: Yes (diabetes, hypothyroid) Hx Alcohol Use: Yes (sober alcoholic, 6 months sober) Hx Substance Use: No Hx Tobacco Use: Yes Smoking Status: Current every day smoker Physical Exam Vitals Vital Signs Date Time Temp Pulse Resp B/P Pulse Ox O2 Delivery O2 Flow Rate FiO2 08/18/17 22:11 98.7 72 18 138/71 95 Physical Exam Const: [] No distress Head: Atraumatic Eyes: Normal Conjunctiva ENT: Normal External Ears, Nose and Mouth. Resp: Clear to auscultation bilaterally Cardio: Regular rate and rhythm, no murmurs Abd: Soft, non tender, non distended. Normal bowel sounds Skin: No petechiae or rashes Ext: No cyanosis, or edema Neur: Awake and alert Psych: Normal Mood and Affect Result Diagram: 08/18/17224208/18/172242 Results 24 hrs Laboratory Tests Test 08/18/17 22:43 08/19/17 00:09 08/19/17 00:14 White Blood Count 8.810^3/ul Red Blood Count 4.4310^6/ul Hemoglobin 11.4g/dl Hematocrit 35.7% Mean Corpuscular Volume 80.6fl Mean Corpuscular Hemoglobin 25.7pg Mean Corpuscular Hemoglobin Concent 31.9g/dl Red Cell Distribution Width 17.2% Platelet Count 28993^3/UL Mean Platelet Volume 10.3fl Neutrophils % 48.2% Lymphocytes % 38.2% Monocytes % 9.3% Eosinophils % 3.0% Basophils % 0.7% Nucleated Red Blood Cells % 0.3/100WBC Neutrophils # 4.310^3/ul Lymphocytes # 3.410^3/ul Monocytes # 0.810^3/ul Eosinophils # 0.310^3/ul Basophils # 0.110^3/ul Nucleated Red Blood Cells # 0.010^3/ul Sodium Level 138mmol/L Potassium Level 4.3mmol/L Chloride Level 99mmol/L Carbon Dioxide Level 29mmol/L Anion Gap 14 Blood Urea Nitrogen 13mg/dl Creatinine 0.53mg/dl Glucose Level 121mg/dl Calcium Level 10.0mg/dl Total Bilirubin 0.1mg/dl Direct Bilirubin 0.00mg/dl Indirect Bilirubin 0.1mg/dl Aspartate Amino Transf (AST/SGOT) 29IU/L Alanine Aminotransferase (ALT/SGPT) 36IU/L Alkaline Phosphatase 65IU/L Total Protein 7.6g/dl Albumin 4.2g/dl Globulin 3.40g/dl Albumin/Globulin Ratio 1.23 Salicylates Level < 1.0mg/dl Acetaminophen Level < 10.0ug/ml Ethyl Alcohol Level 38.0mg/dl Urine Color STRAW Urine Clarity CLEAR Urine pH 5.0 Urine Specific [place] 1.009 Urine Ketones NEGATIVEmg/dL Urine Nitrite NEGATIVEmg/dL Urine Bilirubin NEGATIVEmg/dL Urine Urobilinogen NEGATIVEmg/dL Urine Leukocyte Esterase NEGATIVELeu/ul Urine Hemoglobin NEGATIVEmg/dL Urine Glucose NEGATIVEmg/dL Urine Total Protein NEGATIVEmg/dl Urine Opiates Screen NEGATIVE Urine Barbiturates NEGATIVE Urine Amphetamines Screen NEGATIVE Urine Benzodiazepines Screen NEGATIVE Urine Cocaine Screen NEGATIVE Urine Cannabinoids NEGATIVE Bedside Urine pH (LAB) 5.5 Bedside Urine Protein (LAB) Negative Bedside Urine Glucose (UA) Negative Bedside Urine Ketones (LAB) Negative Bedside Urine Blood Trace-intact Bedside Urine Nitrite (LAB) Negative Bedside Urine Leukocyte Esterase (L Negative Procedures/MDM Patient is medically cleared for tele-psychiatry admission. I see no medical conditions would preclude her from psychiatric admission. She was available by tele-psychiatry who recommended a voluntary hold. She was then evaluated in person at bedside by the PET team. She is well-known to them and she admitted that she just wanted a place to stay and was malingering. Still should be discharged in the actually smiling and says that is fine. She seems calm and not upset. States that she does not want to hang herself. Told her I will provide her discharge paperwork and she says she Mushtaq has psychiatric follow- up and agrees to see them. Departure Diagnosis: Primary Impression: Depression Additional Impression: Malingering Condition: Stable MUNIRA PIZANO DO Aug 18, 2017 23:09
[2017-08-18 23:23] LABS: ALANINE AMINOTRANSFERASE 36 IU/L (13-69); ALBUMIN 4.2 g/dl (3.3-4.9); ALBUMIN/GLOBULIN RATIO 1.23; ALKALINE PHOSPHATASE 65 IU/L (42-121); ANION GAP 14 (8-16); ASPARTATE AMINO TRANSFERASE 29 IU/L (15-46); BILIRUBIN,INDIRECT 0.1 mg/dl (0-1.1); BILIRUBIN,TOTAL 0.1 mg/dl (0.2-1.3); BLOOD UREA NITROGEN 13 mg/dl (7-20); CARBON DIOXIDE 29 mmol/L (21-31); CHLORIDE 99 mmol/L (97-110); CREATININE 0.53 mg/dl (0.44-1.00); GLUCOSE 121 mg/dl (70-220); POTASSIUM 4.3 mmol/L (3.5-5.1); SODIUM 138 mmol/L (135-144); TOTAL PROTEIN 7.6 g/dl (6.1-8.1)
[2017-08-18 23:24] LABS: EOSINOPHILS # 0.3 10^3/ul (0.0-0.5); HEMATOCRIT 35.7 % (37.0-47.0); HEMOGLOBIN 11.4 g/dl (12.0-16.0); LYMPHOCYTES # 3.4 10^3/ul (0.8-2.9); LYMPHOCYTES % 38.2 % (15.0-51.0); MEAN CORPUSCULAR HEMOGLOBIN 25.7 pg (29.0-33.0); MEAN CORPUSCULAR HGB CONC 31.9 g/dl (32.0-37.0); MONOCYTE # 0.8 10^3/ul (0.3-0.9); MONOCYTES % 9.3 % (0.0-11.0); NEUTROPHIL # 4.3 10^3/ul (1.6-7.5); NEUTROPHILS % 48.2 % (39.0-77.0); NUCLEATED RED BLOOD CELLS% 0.3 /100WBC (0.0-0.0); PLATELET COUNT 335 10^3/UL (140-415); RED BLOOD COUNT 4.43 10^6/ul (4.20-5.40); RED CELL DISTRIBUTION WIDTH 17.2 % (11.5-14.5)
[2017-08-18 23:27] LABS: ACETAMINOPHEN < 10.0 ug/ml (10.0-30.0); SALICYLATE < 1.0 mg/dl (5.0-30.0)
[2017-08-19 00:15] LABS: URINE BLOOD (Dip) POC Trace-intact (NEGATIVE)
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
[2017-08-19 01:20] LABS: ADD UMIC NO; UR ASCORBIC ACID NEGATIVE (NEGATIVE); UR BILIRUBIN (Dip) NEGATIVE (NEGATIVE); UR BLOOD (Dip) NEGATIVE (NEGATIVE); UR CLARITY CLEAR (CLEAR); UR COLOR STRAW (YELLOW); UR GLUCOSE (Dip) NEGATIVE (NEGATIVE); UR KETONES (Dip) NEGATIVE (NEGATIVE); UR LEUKOCYTE ESTERASE (Dip) NEGATIVE Leu/ul (NEGATIVE); UR NITRITE (Dip) NEGATIVE (NEGATIVE); UR SPECIFIC GRAVITY (Dip) 1.009 (1.003-1.030); UR TOTAL PROTEIN (Dip) NEGATIVE (NEGATIVE); UR UROBILINOGEN (Dip) NEGATIVE (NEGATIVE)
[2017-08-19 01:26] LABS: BARBITURATES NEGATIVE (NEGATIVE); BENZODIAZEPINES NEGATIVE (NEGATIVE); CANNABINOIDS NEGATIVE (NEGATIVE); COCAINE NEGATIVE (NEGATIVE); OPIATES NEGATIVE (NEGATIVE)
[2017-08-19 07:00] VITALS: BP 117/69; PULSE 75; RESP 17; TEMP 98.7
== END 2017-08-19 07:01 | disposition home or self-care (01) ==
LOC: E/R 21:25
DX: F32.9 Major depressive disorder, single episode, unspecified (principal); E11.9 Type 2 diabetes mellitus without complications; E03.9 Hypothyroidism, unspecified; F17.210 Nicotine dependence, cigarettes, uncomplicated; Z79.84 Long term (current) use of oral hypoglycemic drugs; Z76.5 Malingerer [conscious simulation]
CPT/HCPCS: 36415; 80053; 80306; 80307; 81003; 85025; 99283

== ENCOUNTER 2017-08-19 21:40 | Emergency (ER) | payer OTHER ==
[~2017-08-19] VITALS: Ht 167.6 cm; Wt 93.8 kg
[2017-08-19 22:50] VITALS: Ht 167.6 cm; Wt 93.8 kg
[2017-08-20] MEDS ORDERED: ACETAMINOPHEN 500 MG TAB PO STA (02:51)
--- NOTE | 2017-08-20 03:15 | ERD ---
ER Documentation Chief Complaint Chief Complaint suicidal ideation, "wants to hang self" seen and released today for same HPI This is a 52-year-old female with history of underlying depression, malingering , chronic pain who presents to the emergency room with suicidal ideation. The patient states that she wants to hang herself. She is also asking for Tylenol for her chronic lumbar back pain. She denies any bowel or bladder incontinence and retention. The patient states that she quit smoking but had a cigarette today. No significant cough or shortness of breath. ROS All systems reviewed and are negative except as per history of present illness. Medications Home Meds Reported Medications Quetiapine Fumarate* (Seroquel*) 300 Mg Tablet, 300 MG PO BID, #15 10/12/15 Metformin Hcl* (Metformin Hcl*) 1,000 Mg Tablet, 1000 MG PO BID, TAB 01/04/15 Levothyroxine Sodium* (Levothyroxine Sodium*) 100 Mcg Tablet, 100 MCG PO AC BREAKFAST, TAB 01/04/15 Allergies Allergies: Coded Allergies: No Known Drug Allergies (Unverified Allergy, Unknown, 08/19/17) PMhx/Soc History of Surgery: Yes (hx of per pt) Anesthesia Reaction: No Hx Neurological Disorder: No Hx Respiratory Disorders: No Hx Cardiac Disorders: No Hx Psychiatric Problems: Yes (bipolar,anxiety,hx psych facility for SI) Hx Miscellaneous Medical Probl: Yes (diabetes, hypothyroid) Hx Alcohol Use: Yes (sober alcoholic) Hx Substance Use: No Hx Tobacco Use: Yes FmHx Family History: No diabetes Physical Exam Vitals Vital Signs Date Time Temp Pulse Resp B/P Pulse Ox O2 Delivery O2 Flow Rate FiO2 08/19/17 22:50 98.5 72 18 140/72 95 Physical Exam General: Well developed, well nourished, no acute distress Head: Normocephalic, atraumatic. Eyes: Pupils equally reactive, EOM intact ENT: Moist mucous membranes Neck: Supple, no lymphadenopathy Respiratory: Lungs clear bilaterally, no distress Cardiovascular: RRR, no murmurs, rubs, or gallops Abdominal: Soft, non-tender, non-distended, no peritoneal signs : Deferred MSK: No edema, no unilateral swelling, 5/5 strength Neurologic: Alert and oriented, moving all extremities, normal speech, no focal weakness, no cerebellar signs Skin: No rash Psych: Suicidal ideation, passive plan. Result Diagram: 08/20/17 0323 08/20/17 0323 Results 24 hrs Laboratory Tests Test 08/20/17 03:23 White Blood Count 11.610^3/ul Red Blood Count 4.7910^6/ul Hemoglobin 12.1g/dl Hematocrit 36.9% Mean Corpuscular Volume 77.0fl Mean Corpuscular Hemoglobin 25.3pg Mean Corpuscular Hemoglobin Concent 32.8g/dl Red Cell Distribution Width 17.4% Platelet Count 66565^3/UL Mean Platelet Volume 10.2fl Neutrophils % 63.1% Lymphocytes % 26.7% Monocytes % 6.7% Eosinophils % 2.6% Basophils % 0.6% Nucleated Red Blood Cells % 0.0/100WBC Neutrophils # 7.310^3/ul Lymphocytes # 3.110^3/ul Monocytes # 0.810^3/ul Eosinophils # 0.310^3/ul Basophils # 0.110^3/ul Nucleated Red Blood Cells # 0.010^3/ul Sodium Level 136mmol/L Potassium Level 4.2mmol/L Chloride Level 97mmol/L Carbon Dioxide Level 24mmol/L Anion Gap 19 Blood Urea Nitrogen 16mg/dl Creatinine 0.58mg/dl Glucose Level 119mg/dl Calcium Level 9.5mg/dl Total Bilirubin 0.3mg/dl Direct Bilirubin 0.00mg/dl Indirect Bilirubin 0.3mg/dl Aspartate Amino Transf (AST/SGOT) 31IU/L Alanine Aminotransferase (ALT/SGPT) 40IU/L Alkaline Phosphatase 80IU/L Total Protein 7.8g/dl Albumin 4.7g/dl Globulin 3.10g/dl Albumin/Globulin Ratio 1.51 Ethyl Alcohol Level 29.0mg/dl Current Medications Medications (Trade) Dose Ordered Sig/Melissa Route PRN Reason Start Time Stop Time Status Last Admin Dose Admin Acetaminophen (Tylenol Tab) 1,000 mg ONCE STAT PO 08/20/17 02:51 08/20/17 02:53 DC 08/20/17 03:04 Procedures/MDM LAB INTERPRETATION: No acute process noted. MEDICAL DECISION MAKING: The patient's presentation is consistent with underlying psychiatric illness and likely exacerbation of this illness and/or psychosis. Also, strong concern or consideration for malingering in this patient given frequency of visits. The patient's low back pain is unlikely related to serious etiology. The patient exhibits no clinical signs or symptoms and has no history or risk factors to suggest cauda equina, cord compression, epidural abscess, epidural hematoma, acute aortic aneurysm or dissection. I have a much lower clinical concern for delirium or acute organic pathology such as toxicologic, metabolic, ischemic, intracranial hemorrhage, infectious process. However, we must rule this out prior to relying a diagnosis of underlying psychiatric illness. The patient's workup will include medical screening examination, laboratory analysis, and diagnostic imaging such as EKG, chest x-ray or CT brain as indicated. If the patient's medical examination and laboratory analysis do not reveal acute organic pathology the patient will be medically cleared for psychiatric evaluation. ER COURSE: The patient's laboratory analysis, diagnostic imaging do not suggest an acute organic pathology. At this time I believe the patient's presentation is very consistent with underlying psychiatric illness. The patient is medically cleared for psychiatric evaluation. I kept the patient and/or family informed of laboratory and diagnostic imaging results throughout the emergency room course. CONSULTATION: Psychiatric consultation: Telemetry medicine psychiatry has been consulted on this case to evaluate the patient for possible acute psychiatric illness that would require inpatient hospitalization. DISPOSITION PLAN: Pending psychiatric evaluation Departure Diagnosis: Primary Impression: Back pain Back pain location: low back pain Chronicity: chronic Back pain laterality : bilateral Sciatica presence: without sciatica Qualified Code: M54.5 - Chronic bilateral low back pain without sciatica Additional Impression: Suicidal ideation Condition: Stable KANU NARVAEZ MD Aug 20, 2017 03:15
[2017-08-20 03:55] LABS: BASOPHIL # 0.1 10^3/ul (0.0-0.1); BASOPHILS % 0.6 % (0.0-2.0); EOSINOPHILS # 0.3 10^3/ul (0.0-0.5); EOSINOPHILS % 2.6 % (0.0-7.0); HEMATOCRIT 36.9 % (37.0-47.0); HEMOGLOBIN 12.1 g/dl (12.0-16.0); LYMPHOCYTES # 3.1 10^3/ul (0.8-2.9); LYMPHOCYTES % 26.7 % (15.0-51.0); MEAN CORPUSCULAR HEMOGLOBIN 25.3 pg (29.0-33.0); MEAN CORPUSCULAR HGB CONC 32.8 g/dl (32.0-37.0); MEAN PLATELET VOLUME 10.2 fl (7.4-10.4); MONOCYTE # 0.8 10^3/ul (0.3-0.9); MONOCYTES % 6.7 % (0.0-11.0); NEUTROPHIL # 7.3 10^3/ul (1.6-7.5); NEUTROPHILS % 63.1 % (39.0-77.0); PLATELET COUNT 357 10^3/UL (140-415); RED BLOOD COUNT 4.79 10^6/ul (4.20-5.40); RED CELL DISTRIBUTION WIDTH 17.4 % (11.5-14.5); WHITE BLOOD COUNT 11.6 10^3/ul (4.8-10.8)
[2017-08-20 03:58] LABS: ALBUMIN 4.7 g/dl (3.3-4.9); ALBUMIN/GLOBULIN RATIO 1.51; BILIRUBIN,INDIRECT 0.3 mg/dl (0-1.1); BILIRUBIN,TOTAL 0.3 mg/dl (0.2-1.3); CALCIUM 9.5 mg/dl (8.4-10.2); CREATININE 0.58 mg/dl (0.44-1.00); POTASSIUM 4.2 mmol/L (3.5-5.1); TOTAL PROTEIN 7.8 g/dl (6.1-8.1)
[2017-08-20 05:19] VITALS: BP 144/69; PULSE 72; TEMP 98.7
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
== END 2017-08-20 05:15 | disposition home or self-care (01) ==
LOC: E/R 21:40
DX: M54.5 Low back pain (principal); E11.9 Type 2 diabetes mellitus without complications; Z79.84 Long term (current) use of oral hypoglycemic drugs
CPT/HCPCS: 80053; 80306; 85025; 99283

== ENCOUNTER 2017-08-24 13:13 | Emergency (ER) | END 2017-08-24 13:43 | disposition home or self-care (01) ==

== ENCOUNTER 2017-09-23 00:45 | Emergency (ER) | END 2017-09-23 13:54 | disposition home or self-care (01) ==

== ENCOUNTER 2017-10-23 01:53 | Emergency (ER) | END 2017-10-23 10:05 ==

== ENCOUNTER 2017-11-18 05:13 | Emergency (ER) | END 2017-11-18 07:28 | disposition left against medical advice (07) ==

== ENCOUNTER 2017-12-24 13:19 | Emergency (ER) | END 2017-12-24 13:53 | disposition left against medical advice (07) ==

== ENCOUNTER 2017-12-24 15:19 | Emergency (ER) | END 2017-12-24 15:26 | disposition left against medical advice (07) ==

== ENCOUNTER 2018-03-26 19:00 | Emergency (ER) | END 2018-03-27 06:10 | disposition home or self-care (01) ==

== ENCOUNTER 2018-06-25 23:40 | Emergency (ER) | END 2018-06-26 20:27 ==

== ENCOUNTER 2018-07-10 21:36 | Emergency (ER) | END 2018-07-10 23:54 | disposition home or self-care (01) ==

== ENCOUNTER 2018-08-01 14:20 | Emergency (ER) | END 2018-08-01 19:35 | disposition left against medical advice (07) ==

== ENCOUNTER 2018-11-19 22:25 | Emergency (ER) | payer OTHER ==
[~2018-11-19] VITALS: Wt 112.6 kg
[~2018-11-19 22:25] MED LIST changes: +IBUP-1542 PO; +LEVO100T8 PO; -LEVO100T87 PO; -METF1000 PO; +METF500T24 PO; -QUET300T13 PO; +QUET400T11 PO
--- NOTE | 2018-11-20 08:18 | ERD ---
ER Documentation Chief Complaint Chief Complaint SI AFTER BREAK UP WITH BOYFRIEND MIKE This is a 53-year-old female that states she presents to the emergency department requesting for help that she is experiencing suicidal thoughts and ideations. She states she does not have a plan. She states she had an argument with her boyfriend which was a verbal argument. He broke up with her and she stated she no longer wanted to live. The patient denies any illicit drug use other than cannabinoids. She states she has no history of alcohol abuse. The patient is very reluctant to provide any further history. She states she has had no fevers or shaking or chills. She denies any chest pain. She has no abdominal pain. She states she has no previous suicide attempts in the past ROS All systems reviewed and are negative except as per history of present illness. Medications Home Meds Active Scripts Ibuprofen* (Motrin*) 600 Mg Tab, 600 MG PO Q6H PRN for PAIN AND OR ELEVATED TEMP, #30 TAB Prov:STEPHANY INMAN MD 07/10/18 Reported Medications Quetiapine Fumarate* (Quetiapine Fumarate*) 400 Mg Tablet, 400 MG PO HS, TAB 06/26/18 Metformin Hcl* (Metformin Hcl*) 500 Mg Tablet, 500 MG PO WITH BREAKFAST DINNE, #60 TAB 06/26/18 Levothyroxine Sodium* (Levothyroxine Sodium*) 100 Mcg Tablet, 100 MCG PO BEFORE BREAKFAST, #30 TAB 06/26/18 Allergies Allergies: Coded Allergies: No Known Drug Allergies (Unverified Allergy, Unknown, 06/26/18) PMhx/Soc Medical and Surgical Hx: Unable to obtain History of Surgery: Yes (hx of per pt) Anesthesia Reaction: No Hx Neurological Disorder: No Hx Respiratory Disorders: Yes (COPD per pt) Hx Cardiac Disorders: No Hx Psychiatric Problems: Yes (bipolar,anxiety,hx psych facility for SI) Hx Miscellaneous Medical Probl: Yes (diabetes, hypothyroid) Smoking Status: Unknown if ever smoked Physical Exam Vitals Vital Signs Date Temp Pulse Resp B/P (MAP) Pulse Ox O2 O2 Flow FiO2 Time Delivery Rate 11/20/18 98.2 80 18 112/78 98 Room Air 05:52 (89) 11/20/18 98.2 82 20 145/69 96 Room Air 05:25 (94) 11/19/18 98.3 76 18 159/74 94 22:47 (102) Physical Exam Constitutional:Well-developed. Well-nourished. HEENT:Normocephalic. Atraumatic.Pupils were equal round reactive to light. Moist mucous membranes.No tonsillar exudates. Neck: No nuchal rigidity. No lymphadenopathy. No posterior cervical spine tenderness or step-offs. Respiratory: Not using accessory muscles of respiration.Lungs were clear to auscultation bilaterally. No rhonchi. No rales. No wheezing. Cardiovascular: Regular rate regular rhythm.No murmurs. No rubs were appreciated.S1, S2 normal. Distal pulses are palpable 2+ bilaterally. GI: Abdomen was soft. Nontender. Non Distended. No pulsatile abdominal masses or bruits. No rebound. No guarding. Bowel sounds were present and normal. Muscle skeletal: Full range of motion of both the upper and lower extremities bilaterally.Normal muscle tone.No assymetrical calf tenderness or swelling. Skin: No petechia, no purpura. No lesions on the palms or the soles of the feet. No maculopapular rash. NEURO: Patient was alert, awake, orientated x3.No facial droop. Gait observed and normal with no ataxia.Speech had regular rate and rhythm. No focal neurological deficits. PSYCH: Patient had guarded behavior. Made poor artery contact . light on a bed supine with a sheet covering her and refused to answer most questions. She did experience suicidal thoughts. She had no auditory tactile or visual hallucinations. Result Diagram: 11/20/18 0458 11/20/18 0458 Results 24 hrs Laboratory Tests Test 11/20/18 04:58 White Blood Count 8.4 10^3/ul Red Blood Count 4.43 10^6/ul Hemoglobin 10.6 g/dl Hematocrit 34.6 % Mean Corpuscular Volume 78.1 fl Mean Corpuscular Hemoglobin 23.9 pg Mean Corpuscular Hemoglobin Concent 30.6 g/dl Red Cell Distribution Width 19.6 % Platelet Count 260 10^3/UL Mean Platelet Volume 9.6 fl Immature Granulocytes % 0.500 % Neutrophils % 44.7 % Lymphocytes % 39.2 % Monocytes % 13.7 % Eosinophils % 1.3 % Basophils % 0.6 % Nucleated Red Blood Cells % 0.0 /100WBC Immature Granulocytes # 0.040 10^3/ul Neutrophils # 3.8 10^3/ul Lymphocytes # 3.3 10^3/ul Monocytes # 1.2 10^3/ul Eosinophils # 0.1 10^3/ul Basophils # 0.1 10^3/ul Nucleated Red Blood Cells # 0.0 10^3/ul Urine Color YELLOW Urine Clarity SLIGHTLY CLOUDY Urine pH 6.0 Urine Specific [place] 1.008 Urine Ketones NEGATIVE mg/dL Urine Nitrite NEGATIVE mg/dL Urine Bilirubin NEGATIVE mg/dL Urine Urobilinogen NEGATIVE mg/dL Urine Leukocyte Esterase NEGATIVE Jazmín/ul Urine Microscopic RBC 1 /HPF Urine Microscopic WBC 0 /HPF Urine Squamous Epithelial Cells FEW /HPF Urine Bacteria FEW /HPF Urine Hemoglobin NEGATIVE mg/dL Urine Glucose NEGATIVE mg/dL Urine Total Protein NEGATIVE mg/dl Sodium Level 136 mmol/L Potassium Level 4.0 mmol/L Chloride Level 99 mmol/L Carbon Dioxide Level 30 mmol/L Anion Gap 7 Blood Urea Nitrogen 16 mg/dl Creatinine 0.67 mg/dl Est Glomerular Filtrat Rate mL/min > 60 mL/min Glucose Level 106 mg/dl Calcium Level 8.9 mg/dl Total Bilirubin 0.3 mg/dl Direct Bilirubin 0.00 mg/dl Indirect Bilirubin 0.3 mg/dl Aspartate Amino Transf (AST/SGOT) 29 IU/L Alanine Aminotransferase (ALT/SGPT) 39 IU/L Alkaline Phosphatase 64 IU/L Total Protein 7.0 g/dl Albumin 4.2 g/dl Globulin 2.80 g/dl Albumin/Globulin Ratio 1.50 Salicylates Level < 1.0 mg/dl Urine Opiates Screen Negative Acetaminophen Level < 10.0 ug/ml Urine Barbiturates Negative Urine Amphetamines Screen Negative Urine Benzodiazepines Screen Negative Urine Cocaine Screen Negative Urine Cannabinoids Positive Ethyl Alcohol Level < 10.0 mg/dl Procedures/MDM The patient presented to the emergency department with an active suicidal ideation. My differential diagnosis included but was not limited to major depressive disorder, normal despondency, bipolar disorder, schizophrenia, anxiety disorder, borderline personality disorder, antisocial personality disorder, organic mental disorder, bereavement or alcohol or drug abuse. Ancillary lab work was obtained including blood alcohol level, drug screen and serum toxicology panel. The patient was provided a safe environment while in the emergency department with appropriate supervision. The patient will be seen and evaluated by the tele-psychiatrist as at this time the patient was medically cleared by myself for further evaluation for possible psychiatric placement. Departure Diagnosis: Primary Impression: Suicidal ideation Condition: LESLIE Jeter MD Nov 20, 2018 08:18
[2018-11-20] MEDS ORDERED: LURA40TA PO (13:49)
[2018-11-20] MEDS ORDERED: CLON1TAB13 PO (13:50)
[2018-11-20] MEDS ORDERED: SITA100T11 PO (13:50)
[2018-11-20] MEDS ORDERED: GLIP10TA14 PO (13:51)
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
[2018-11-20] MEDS ORDERED: clonAZEPAM 0.5 MG TAB PO ONE (15:00)
[2018-11-20] MEDS ORDERED: metFORMIN 850 MG TAB PO ONE (15:00)
[2018-11-20] MEDS: ACCU-CHEK XX SCH ×2 (15:15→21:00)
[2018-11-20] MEDS ORDERED: metFORMIN 500 MG TAB PO SCH (15:30)
[2018-11-20] MEDS ORDERED: IBUPROFEN 800 MG TAB PO ONE (16:30)
[2018-11-20] MEDS ORDERED: LORAZEPAM 1 MG TAB PO ONE (18:00)
[2018-11-21] MEDS ORDERED: LOPERAMIDE 2 MG CAP PO ONE (02:00)
[2018-11-21] MEDS ORDERED: clonAZEPAM 0.5 MG TAB PO ONE (02:00)
[2018-11-21] MEDS ORDERED: QUETIAPINE 100 MG TAB PO ONE (03:00)
[2018-11-21] MEDS: ACCU-CHEK XX SCH (07:00)
[2018-11-21 08:52] VITALS: BP 112/56; PULSE 61; RESP 18
== END 2018-11-21 09:27 ==
LOC: E/R 22:25
DX: R45.851 Suicidal ideations (principal); E11.9 Type 2 diabetes mellitus without complications; E03.9 Hypothyroidism, unspecified; J44.9 Chronic obstructive pulmonary disease, unspecified; Z79.84 Long term (current) use of oral hypoglycemic drugs
CPT/HCPCS: 36415; 80053; 80307; 81001; 81003; 82962; 85025; 99285

== ENCOUNTER 2018-12-07 20:24 | Emergency (ER) | payer OTHER ==
[~2018-12-07] VITALS: Ht 160 cm; Wt 108.2 kg
[2018-12-07 20:32] VITALS: Ht 160 cm; Wt 108.2 kg
--- NOTE | 2018-12-07 23:34 | ERD ---
ER Documentation Chief Complaint Chief Complaint SI AFTER BREAKUP HPI 53-year-old female with a known psychiatric history presenting with complaints of "overdosing on Valium". She states that she took too much but denies any suicide attempt. History is somewhat limited as the patient is very somnolent and appears intoxicated. I asked her specifically if she is having any suicide thoughts, and she states that she is not. ROS Limited due to altered mental status Allergies Allergies: Coded Allergies: No Known Drug Allergies (Unverified Allergy, Unknown, 11/20/18) PMhx/Soc History of Surgery: Yes (hx of per pt) Anesthesia Reaction: No Hx Neurological Disorder: No Hx Respiratory Disorders: No Hx Cardiac Disorders: No Hx Psychiatric Problems: Yes (bipolar,anxiety,hx psych facility for SI) Hx Miscellaneous Medical Probl: Yes (diabetes, hypothyroid) Hx Alcohol Use: Yes (every week) Hx Substance Use: No Hx Tobacco Use: Yes (half pack cigarettes every other day) Smoking Status: Current every day smoker FmHx Unable to obtain Physical Exam Vitals Vital Signs Date Temp Pulse Resp B/P (MAP) Pulse Ox O2 O2 Flow FiO2 Time Delivery Rate 12/07/18 98.5 80 18 132/78 95 20:32 (96) Physical Exam Const: No acute distress. Appears intoxicated. Somnolent but arousable. Head: Atraumatic Eyes: Normal Conjunctiva ENT: Normal External Ears, Nose and Mouth. Neck: Full range of motion. No meningismus. Resp: Clear to auscultation bilaterally Cardio: Regular rate and rhythm, no murmurs Abd: Soft, non tender, non distended. Normal bowel sounds Skin: No petechiae or rashes Back: No midline or flank tenderness Ext: No cyanosis, or edema Neur: Somnolent but arousable. No facial asymmetry. Normal speech. Moving all extremities spontaneously. Psych: Normal Mood and Affect. Denying any suicidal or homicidal ideations. Denying any hallucinations. Result Diagram: 12/07/18210112/07/182101 Results 24 hrs Laboratory Tests Test 12/07/18 21:02 White Blood Count 9.8 10^3/ul Red Blood Count 4.92 10^6/ul Hemoglobin 11.6 g/dl Hematocrit 38.5 % Mean Corpuscular Volume 78.3 fl Mean Corpuscular Hemoglobin 23.6 pg Mean Corpuscular Hemoglobin Concent 30.1 g/dl Red Cell Distribution Width 17.7 % Platelet Count 379 10^3/UL Mean Platelet Volume 9.9 fl Immature Granulocytes % 0.300 % Neutrophils % 48.3 % Lymphocytes % 40.5 % Monocytes % 8.1 % Eosinophils % 2.0 % Basophils % 0.8 % Nucleated Red Blood Cells % 0.0 /100WBC Immature Granulocytes # 0.030 10^3/ul Neutrophils # 4.7 10^3/ul Lymphocytes # 4.0 10^3/ul Monocytes # 0.8 10^3/ul Eosinophils # 0.2 10^3/ul Basophils # 0.1 10^3/ul Nucleated Red Blood Cells # 0.0 10^3/ul Sodium Level 135 mmol/L Potassium Level 4.0 mmol/L Chloride Level 95 mmol/L Carbon Dioxide Level 26 mmol/L Anion Gap 14 Blood Urea Nitrogen 13 mg/dl Creatinine 0.69 mg/dl Est Glomerular Filtrat Rate mL/min > 60 mL/min Glucose Level 186 mg/dl Calcium Level 9.6 mg/dl Total Bilirubin 0.6 mg/dl Direct Bilirubin 0.00 mg/dl Indirect Bilirubin 0.6 mg/dl Aspartate Amino Transf (AST/SGOT) 26 IU/L Alanine Aminotransferase (ALT/SGPT) 24 IU/L Alkaline Phosphatase 67 IU/L Total Protein 7.8 g/dl Albumin 4.5 g/dl Globulin 3.30 g/dl Albumin/Globulin Ratio 1.36 Salicylates Level < 1.0 mg/dl Acetaminophen Level < 10.0 ug/ml Ethyl Alcohol Level 124.0 mg/dl Procedures/MDM Patients presented with altered mental status and was clearly intoxicated on exam. Vitals are unremarkable. Patient maintaining airway. Based on exam, her altered mental status is likely related to alcohol or drug intoxication. I have a low suspicion for serious metabolic or electrolyte derangement, intracranial hemorrhage, acute infectious process, meningitis/encephalitis, or CVA. She is denying any suicidal ideations to me. Patient was observed for several hours in the ER with serial examinations and mental status evaluations. The patients symptoms have not completely resolved and not yet safe for discharge.. Patient will continue to be observed in the department for improvement of symptoms and mental status. Patient will be signed out to the oncoming ED physician, who will reevaluate the patient and decide on final disposition. Departure Diagnosis: Primary Impression: Intoxication Condition: Stable Patient Instructions: Alcohol Intoxication MARTHA DUPREE MD Dec 07, 2018 23:31
[2018-12-08 05:30] VITALS: BP 145/84; PULSE 85; RESP 17
== END 2018-12-08 05:30 | disposition home or self-care (01) ==
LOC: E/R 20:24
DX: T42.4X4A Poisoning by benzodiazepines, undetermined, initial encounter (principal); E11.9 Type 2 diabetes mellitus without complications; E03.9 Hypothyroidism, unspecified; F17.210 Nicotine dependence, cigarettes, uncomplicated
CPT/HCPCS: 36415; 80053; 80307; 85025; 99283

== ENCOUNTER 2019-01-18 21:26 | Emergency (ER) | payer OTHER ==
[~2019-01-18] VITALS: Wt 106.9 kg
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
--- NOTE | 2019-01-19 01:36 | ERD ---
ER Documentation Chief Complaint Chief Complaint SUICIDAL WITH PLAN TO RUN INTO TRAFFIC HPI Is a 53 it was that she is suicidal with plan to manage the traffic. She is been seen multiple times for similar complaints. Denies fevers chills nausea vomiting. Denies auditory or visual hallucinations. Denies any other current complaints ROS All systems reviewed and are negative except as per history of present illness. Allergies Allergies: Coded Allergies: No Known Drug Allergies (Unverified Allergy, Unknown, 11/20/18) PMhx/Soc History of Surgery: Yes (hx of per pt) Anesthesia Reaction: No Hx Neurological Disorder: No Hx Respiratory Disorders: No Hx Cardiac Disorders: No Hx Psychiatric Problems: Yes (bipolar,anxiety,hx psych facility for SI) Hx Miscellaneous Medical Probl: Yes (diabetes, hypothyroid) Hx Alcohol Use: Yes (every week) Hx Substance Use: No Hx Tobacco Use: Yes (half pack cigarettes every other day) Smoking Status: Current every day smoker Physical Exam Vitals Vital Signs Date Temp Pulse Resp B/P (MAP) Pulse Ox O2 O2 Flow FiO2 Time Delivery Rate 01/18/19 98.2 71 18 146/80 96 21:34 (102) Physical Exam Const: No acute distress Head: Atraumatic Eyes: Normal Conjunctiva ENT: Normal External Ears, Nose and Mouth. Neck: Full range of motion. No meningismus. Resp: Clear to auscultation bilaterally Cardio: Regular rate and rhythm, no murmurs Abd: Soft, non tender, non distended. Normal bowel sounds Skin: No petechiae or rashes Back: No midline or flank tenderness Ext: No cyanosis, or edema Neur: Awake and alert Psych: Normal Mood and Affect Result Diagram: 01/18/19 2320 01/18/19 2320 Results 24 hrs Laboratory Tests Test 01/18/19 23:20 White Blood Count 10.1 10^3/ul Red Blood Count 4.75 10^6/ul Hemoglobin 11.4 g/dl Hematocrit 37.6 % Mean Corpuscular Volume 79.2 fl Mean Corpuscular Hemoglobin 24.0 pg Mean Corpuscular Hemoglobin Concent 30.3 g/dl Red Cell Distribution Width 17.3 % Platelet Count 220 10^3/UL Mean Platelet Volume 9.6 fl Immature Granulocytes % 0.300 % Neutrophils % 69.2 % Lymphocytes % 19.4 % Monocytes % 7.8 % Eosinophils % 2.8 % Basophils % 0.5 % Nucleated Red Blood Cells % 0.2 /100WBC Immature Granulocytes # 0.030 10^3/ul Neutrophils # 7.0 10^3/ul Lymphocytes # 2.0 10^3/ul Monocytes # 0.8 10^3/ul Eosinophils # 0.3 10^3/ul Basophils # 0.1 10^3/ul Nucleated Red Blood Cells # 0.0 10^3/ul Urine Color YELLOW Urine Clarity CLOUDY Urine pH 6.0 Urine Specific [place] 1.021 Urine Ketones TRACE mg/dL Urine Nitrite NEGATIVE mg/dL Urine Bilirubin NEGATIVE mg/dL Urine Urobilinogen 1+ mg/dL Urine Leukocyte Esterase 1+ Jazmín/ul Urine Microscopic RBC 2 /HPF Urine Microscopic WBC 16 /HPF Urine Squamous Epithelial Cells MANY /HPF Urine Bacteria FEW /HPF Urine Mucus MODERATE /HPF Urine Hemoglobin NEGATIVE mg/dL Urine Glucose NEGATIVE mg/dL Urine Total Protein NEGATIVE mg/dl Sodium Level 132 mmol/L Potassium Level 3.6 mmol/L Chloride Level 90 mmol/L Carbon Dioxide Level 31 mmol/L Anion Gap 11 Blood Urea Nitrogen 9 mg/dl Creatinine 0.68 mg/dl Est Glomerular Filtrat Rate mL/min > 60 mL/min Glucose Level 109 mg/dl Calcium Level 9.6 mg/dl Total Bilirubin 0.4 mg/dl Direct Bilirubin 0.00 mg/dl Indirect Bilirubin 0.4 mg/dl Aspartate Amino Transf (AST/SGOT) 37 IU/L Alanine Aminotransferase (ALT/SGPT) 27 IU/L Alkaline Phosphatase 61 IU/L Total Protein 7.7 g/dl Albumin 4.5 g/dl Globulin 3.20 g/dl Albumin/Globulin Ratio 1.40 Salicylates Level < 1.0 mg/dl Urine Opiates Screen NEGATIVE Acetaminophen Level < 10.0 ug/ml Urine Barbiturates NEGATIVE Urine Amphetamines Screen NEGATIVE Urine Benzodiazepines Screen POSITIVE Urine Cocaine Screen NEGATIVE Urine Cannabinoids NEGATIVE Ethyl Alcohol Level < 10.0 mg/dl Procedures/MDM Patient's behavioral symptoms have stabilized while in the department. Patient is medically cleared and appropriate for psychiatric evaluation and work up. No e/o neurologic, toxic, infectious, or metabolic cause. Patient placed on involuntary hold recommendation by telemetry psychiatry. I agree with assessment. Currently pending bed placement. Departure Diagnosis: Primary Impression: Suicidal ideation Condition: ISAIAS Alfredo January 19, 2019 01:36
[2019-01-19] MEDS ORDERED: CLON1TAB13 PO (03:41)
[2019-01-19] MEDS ORDERED: SITA100T11 PO (03:41)
[2019-01-19] MEDS ORDERED: METF-849 PO ×2 (03:41→03:43)
[2019-01-19] MEDS ORDERED: LEVO100T8 PO (03:41)
[2019-01-19] MEDS ORDERED: QUET100T32 PO (03:41)
[2019-01-19] MEDS ORDERED: IBUP-1542 PO (03:43)
[2019-01-19] MEDS ORDERED: FURO20TA3 PO (03:43)
[2019-01-19 04:36] VITALS: BP 139/77; PULSE 82; RESP 16
== END 2019-01-19 04:45 ==
LOC: E/R 21:26
DX: R45.851 Suicidal ideations (principal); E03.9 Hypothyroidism, unspecified; E11.9 Type 2 diabetes mellitus without complications; F17.210 Nicotine dependence, cigarettes, uncomplicated
CPT/HCPCS: 36415; 80053; 80307; 81001; 85025

== ENCOUNTER 2019-02-20 11:05 | Emergency (ER) | payer OTHER ==
[~2019-02-20] VITALS: Ht 160 cm; Wt 112.9 kg
[~2019-02-20 11:05] MED LIST changes: +CLON1TAB13 PO; +FURO20TA3 PO; +METF-849 PO; -METF500T24 PO; +QUET100T32 PO; -QUET400T11 PO; +SITA100T11 PO
[2019-02-20 11:11] VITALS: Ht 160 cm; Wt 112.9 kg
[2019-02-20] MEDS ORDERED: IBUPROFEN 600 MG TAB PO ONE (12:00)
--- NOTE | 2019-02-20 12:03 | ERD ---
ER Documentation Chief Complaint Chief Complaint SUICIDAL IDEATION WITH PLAN, ETOH ON BREATH HPI 53-year-old female well-known to the emergency department this provider who presents with suicidal ideation of unknown duration. She states suicidal thoughts with plan to hang herself. She notes chronic bilateral lower extremity ankle swelling. She denies any chest pain or shortness breath no fevers or chills. She is asking for Motrin for chronic pain. Patient smells of alcohol at triage. ROS All systems reviewed and are negative except as per history of present illness. Medications Home Meds Reported Medications Furosemide* (Furosemide*) 20 Mg Tablet, 20 MG PO DAILY, #60 TAB 01/19/19 Metformin* (Glucophage*) 500 Mg Tab, 500 MG PO WITH BREAKFAST DINNE, #30 TAB 01/19/19 Ibuprofen* (Ibuprofen*) 600 Mg Tablet, 600 MG PO Q6H, TAB 01/19/19 Quetiapine Fumarate* (Quetiapine Fumarate*) 100 Mg Tablet, 100 MG PO DAILY for 60 Days, #60 01/19/19 Levothyroxine Sodium* (Levothyroxine Sodium*) 100 Mcg Tablet, 100 MCG PO QAM for 30 Days, #30 01/19/19 Clonazepam* (Clonazepam*) 1 Mg Tablet, 1 MG PO BID for 30 Days, #60 01/19/19 Metformin* (Glucophage*) 500 Mg Tab, 500 MG PO BID for 90 Days, #180 01/19/19 Sitagliptin* (Januvia*) 100 Mg Tablet, 100 MG PO DAILY for 30 Days, #30 01/19/19 Allergies Allergies: Coded Allergies: No Known Drug Allergies (Unverified Allergy, Unknown, 01/19/19) PMhx/Soc History of Surgery: Yes (hx of per pt) Anesthesia Reaction: No Hx Neurological Disorder: No Hx Respiratory Disorders: No Hx Cardiac Disorders: No Hx Psychiatric Problems: Yes (bipolar,anxiety,hx psych facility for SI) Hx Miscellaneous Medical Probl: Yes (diabetes, hypothyroid) Hx Alcohol Use: Yes (every week) Hx Substance Use: No Hx Tobacco Use: Yes (half pack cigarettes every other day) FmHx Family History: No diabetes Physical Exam Vitals Vital Signs Date Temp Pulse Resp B/P (MAP) Pulse Ox O2 O2 Flow FiO2 Time Delivery Rate 02/20/19 98.1 85 18 146/88 99 11:11 (107) Physical Exam General: Somewhat disheveled but no acute distress Head: Normocephalic, atraumatic. Eyes: Pupils equally reactive, EOM intact ENT: Moist mucous membranes Neck: Supple, no lymphadenopathy Respiratory: Lungs clear bilaterally, no distress Cardiovascular: RRR, no murmurs, rubs, or gallops Abdominal: Soft, non-tender, non-distended, no peritoneal signs : Deferred MSK: Scant bilateral pedal no edema, no unilateral swelling, 5/5 strength Neurologic: Alert and oriented, moving all extremities, normal speech, no focal weakness, no cerebellar signs Skin: No rash Psych: Suicidal ideation with plan Result Diagram: 02/20/19 1219 02/20/19 1219 Results 24 hrs Laboratory Tests Test 02/20/19 12:19 White Blood Count 10.3 10^3/ul Red Blood Count 4.18 10^6/ul Hemoglobin 10.0 g/dl Hematocrit 32.7 % Mean Corpuscular Volume 78.2 fl Mean Corpuscular Hemoglobin 23.9 pg Mean Corpuscular Hemoglobin Concent 30.6 g/dl Red Cell Distribution Width 17.8 % Platelet Count 245 10^3/UL Mean Platelet Volume 10.5 fl Immature Granulocytes % 0.300 % Neutrophils % 60.3 % Lymphocytes % 30.0 % Monocytes % 7.7 % Eosinophils % 1.3 % Basophils % 0.4 % Nucleated Red Blood Cells % 0.0 /100WBC Immature Granulocytes # 0.030 10^3/ul Neutrophils # 6.2 10^3/ul Lymphocytes # 3.1 10^3/ul Monocytes # 0.8 10^3/ul Eosinophils # 0.1 10^3/ul Basophils # 0.0 10^3/ul Nucleated Red Blood Cells # 0.0 10^3/ul Sodium Level 140 mmol/L Potassium Level 3.6 mmol/L Chloride Level 103 mmol/L Carbon Dioxide Level 25 mmol/L Anion Gap 12 Blood Urea Nitrogen 12 mg/dl Creatinine 0.67 mg/dl Est Glomerular Filtrat Rate mL/min > 60 mL/min Glucose Level 171 mg/dl Calcium Level 9.4 mg/dl Total Bilirubin 0.2 mg/dl Direct Bilirubin 0.00 mg/dl Indirect Bilirubin 0.2 mg/dl Aspartate Amino Transf (AST/SGOT) 24 IU/L Alanine Aminotransferase (ALT/SGPT) 29 IU/L Alkaline Phosphatase 58 IU/L Total Protein 6.7 g/dl Albumin 3.7 g/dl Globulin 3.00 g/dl Albumin/Globulin Ratio 1.23 Ethyl Alcohol Level 53.0 mg/dl Current Medications Medications Dose Sig/Melissa Start Time Status Last (Trade) Ordered Route PRN Stop Time Admin Dose Reason Admin Ibuprofen 600 mg ONCE ONCE 02/20/19 DC 02/20/19 (Motrin) PO 12:00 12:38 02/20/19 12:01 Procedures/MDM EKG/DIAGNOSTIC IMAGING: None Required LAB INTERPRETATION: Mild alcohol elevation MEDICAL DECISION MAKING: The patient's presentation is consistent with underlying psychiatric illness and likely exacerbation of this illness and/or psychosis. Pedal edema is consistent with baseline without evidence of renal failure, he patic failure or CHF I have a much lower clinical concern for delirium or acute organic pathology s uch as toxicologic, metabolic, ischemic, intracranial hemorrhage, infectious process. However, we must rule this out prior to relying a diagnosis of underlying psychiatric illness. The patient's workup will include medical screening examination and appropriate laboratory testing. If the patient's medical examination does not reveal acute organic pathology the patient will be medically cleared for psychiatric evaluation. ER COURSE: The patient's evaluation does not suggest an acute organic pathology. At this time I believe the patient's presentation is very consistent with underlying psychiatric illness. The patient is medically cleared for psychiatric evaluation. CONSULTATION: Psychiatric consultation: Telemetry medicine psychiatry has been consulted on this case to evaluate the patient for possible acute psychiatric illness that would require inpatient hospitalization. DISPOSITION PLAN: Pending psychiatric evaluation and possible placement Telemetry medicine psychiatry recommends voluntary placement. Patient pending transportation. Departure Diagnosis: Primary Impression: Suicidal ideation Additional Impression: Chronic back pain Back pain location: back pain in unspecified location Back pain laterality: unspecified Qualified Codes: M54.9 - Dorsalgia, unspecified; G89.29 - Other chronic pain Condition: KANU Shankar MD Feb 20, 2019 12:03
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
[2019-02-20 20:15] VITALS: BP 157/88; PULSE 77; RESP 19
== END 2019-02-20 20:37 ==
LOC: E/R 11:05
DX: R45.851 Suicidal ideations (principal); M54.9 Dorsalgia, unspecified; E11.9 Type 2 diabetes mellitus without complications; E03.9 Hypothyroidism, unspecified; Z79.84 Long term (current) use of oral hypoglycemic drugs; Z87.891 Personal history of nicotine dependence
CPT/HCPCS: 80053; 80307; 82962; 85025

== ENCOUNTER 2019-05-20 22:26 | Emergency (ER) | payer OTHER ==
[~2019-05-20] VITALS: Ht 160 cm; Wt 112.8 kg
[~2019-05-20 22:26] MED LIST changes: +QUET50TA PO
[2019-05-20 22:36] VITALS: Ht 160 cm; Wt 112.8 kg
[2019-05-20 23:25] VITALS: BP 142/70; PULSE 82; RESP 18
[2019-05-20] MEDS ORDERED: IBUPROFEN 200 MG TAB PO ONE (23:30)
== END 2019-05-21 00:10 | disposition home or self-care (01) ==
LOC: E/R 22:26
DX: R60.0 Localized edema (principal); E11.9 Type 2 diabetes mellitus without complications; E03.9 Hypothyroidism, unspecified; Z87.891 Personal history of nicotine dependence; Z79.84 Long term (current) use of oral hypoglycemic drugs
CPT/HCPCS: 99283